=== PATIENT | female | born 1995 | race Caucasian/White ===

== ENCOUNTER 2017-01-25 11:57 | Outpatient (CLI) | payer MEDICAID | END 2017-01-25 11:58 | disposition short-term general hospital (02) | LOC: EMS 11:57 | PROVIDERS: ATTEND Surgery | DX: O99.89 Other specified diseases and conditions complicating pregnancy, childbirth and the puerperium (principal); R00.2 Palpitations; R10.9 Unspecified abdominal pain | CPT/HCPCS: A0425; A0429 ==